=== PATIENT | female | born 2000 | race Hispanic/Latino ===

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

== ENCOUNTER 2020-07-28 21:40 | Emergency (ER) | payer SELFPAY ==
[~2020-07-28] VITALS: Ht 167.6 cm; Wt 100.0 kg
[~2020-07-28 21:40] MED LIST changes: +FLOXIN OTIC0.3 % AS; +ULTRAM50 M1 PO
[2020-07-28 23:01] LABS: HEMATOCRIT 41.7 % (37.0-47.0); HEMOGLOBIN 13.2 g/dl (12.0-16.0); IMMATURE GRANULOCYTES 0.4 % (0.0-5.0); MEAN CELL VOLUME 83.9 fL CALC (80.0-100.0); MEAN CORPUSCULAR HGB 26.6 pG CALC (26.0-32.0); MEAN CORPUSCULAR HGB CONC 31.7 g/dL CAL (32.0-36.0); NEUT# 7.66 thou/uL (2.00-7.15); RED BLOOD COUNT 4.97 mill/uL (4.20-5.60); RED CELL DISTRI WIDTH 13.2 % (11.5-15.5)
[2020-07-29 00:26] VITALS: BP 118/76
== END 2020-07-29 00:26 | disposition home or self-care (01) | DRG 866 ==
LOC: ED 21:40
PROVIDERS: Family Medicine
DX: B34.9 Viral infection, unspecified (principal); F41.9 Anxiety disorder, unspecified; F32.9 Major depressive disorder, single episode, unspecified; Z20.822 Contact with and (suspected) exposure to COVID-19

== ENCOUNTER 2021-02-25 22:31 | Emergency (ER) | payer MEDICAID ==
[2021-02-25 23:27] LABS: HEMOGLOBIN 13.4 g/dl (12.0-16.0); IMMATURE GRANULOCYTES 0.6 % (0.0-5.0); MEAN CELL VOLUME 87.5 fL CALC (80.0-100.0); MEAN CORPUSCULAR HGB 27.9 pG CALC (26.0-32.0); MEAN CORPUSCULAR HGB CONC 31.9 g/dL CAL (32.0-36.0); NEUT# 2.25 thou/uL (2.00-7.15); RED BLOOD COUNT 4.8 mill/uL (4.20-5.60); RED CELL DISTRI WIDTH 12.8 % (11.5-15.5)
[2021-02-26 00:18] VITALS: BP 128/71
[2021-02-26] MEDS ORDERED: BUSPIRONE5 MG PO (04:52)
== END 2021-02-26 00:18 | disposition home or self-care (01) ==
LOC: ED 22:31
PROVIDERS: Family Medicine
DX: B34.9 Viral infection, unspecified (principal); F41.9 Anxiety disorder, unspecified; Z20.822 Contact with and (suspected) exposure to COVID-19

== ENCOUNTER 2023-07-11 21:01 | Emergency (ER) | payer SELFPAY ==
[2023-07-11] VITALS (9 sets, daily range): BP systolic 115–139; BP diastolic 51–108
[~2023-07-11] VITALS: Ht 167.6 cm; Wt 97.5 kg
[~2023-07-11 21:01] MED LIST changes: +BUSPIRONE5 MG PO
[2023-07-11] MEDS ORDERED: [UNRECOGNIZED DRUG - OTHER] OT (23:03)
[2023-07-11] MEDS ORDERED: AMOX/K CLAV875 M1 PO (23:03)
== END 2023-07-11 23:29 | disposition home or self-care (01) | DRG 153 ==
LOC: ED 21:01
DX: H66.91 Otitis media, unspecified, right ear (principal); H61.21 Impacted cerumen, right ear; Z20.822 Contact with and (suspected) exposure to COVID-19